=== PATIENT | female | born 1940 | race Caucasian/White ===

== ENCOUNTER 2019-08-29 10:26 | Inpatient (IN) | payer OTHER ==
[~2019-08-29] VITALS: Ht 160 cm; Wt 80.3 kg
[2019-08-29 10:42] VITALS: BP 164/54
[2019-08-29] MEDS ORDERED: OMEPRAZOLE 20 M20 M1 PO (10:46)
[2019-08-29] MEDS ORDERED: PRINIVIL20 M1 PO (10:46)
[2019-08-29] MEDS ORDERED: CELEXA 20 MG TA20 MG PO (10:47)
[2019-08-29] MEDS ORDERED: OXYBUTYNIN 5 MG5 M2 PO (10:47)
[2019-08-29] MEDS ORDERED: LIPITOR 20 MG T20 M1 PO (10:47)
[2019-08-29] MEDS ORDERED: METFORMIN HCL500 M3 PO (10:47)
[2019-08-29] MEDS ORDERED: TRAMADOL 50 MG50 MG PO (10:48)
[2019-08-29] MEDS ORDERED: XANAX 0.25 MG0.25 MG PO (10:48)
[2019-08-29] MEDS ORDERED: LEVO-T100 MCG PO (10:48)
[2019-08-29] MEDS ORDERED: METOPROLOL SUCC50 MG PO (10:48)
[2019-08-29] MEDS ORDERED: ASA81BEC PO (10:48)
[2019-08-29] MEDS ORDERED: VITAMIN C500 M2 PO (10:49)
[2019-08-29] MEDS ORDERED: ARTHRITIS PAIN650 M3 PO (10:50)
[2019-08-29] MEDS ORDERED: STOOL SOFTENER100 MG PO (10:50)
[2019-08-29] MEDS ORDERED: TUMS200 MG PO (10:50)
[2019-08-29 11:14] LABS: URINE BILIRUBIN NEGATIVE (Negative); URINE BLOOD 3+ (Negative); URINE CLARITY TURBID; URINE COLOR RED; URINE GLUCOSE-RANDOM TRACE (Negative); URINE KETONES NEGATIVE (Negative); URINE LEUKOCYTES-REFLEX TRACE (Negative); URINE NITRITE-REFLEX POSITIVE (Negative); URINE PROTEIN 3+ (Negative)
[2019-08-29 11:15] LABS: ABSOLUTE BASOPHILS 0.1 thou/uL (0.0-0.2); ABSOLUTE EOSINOPHILS 0.7 thou/uL (0.0-0.7); ABSOLUTE LYMPHOCYTES 1.7 thou/uL (0.8-5.3); ABSOLUTE MONOCYTES 0.6 thou/uL (0.0-1.2); ABSOLUTE NEUTROPHILS 6.8 thou/uL (1.6-8.1); BASOPHILS 0.9 %; EOSINOPHILS 6.9 %; HEMATOCRIT 34.7 % (37.0-47.0); HEMOGLOBIN 11.4 gm/dL (12.0-15.0); LYMPHOCYTES 17.1 %; MCH 30.5 pg (26.0-34.0); MCV 92.5 fL (80.0-100.0); MONOCYTES 6.5 %; MPV 7.8 fl. (7.2-11.1); NUCLEATED RBCS 0 /100WBC; PLATELET COUNT* 300 thou/uL (150-400); POLYS 68.6 %; RBC 3.75 mil/uL (4.20-5.00); RDW-CV 14.5 % (10.5-14.5); WBC 9.9 thou/uL (4.0-11.0)
[2019-08-29 11:21] LABS: SQUAMOUS 0-3 Few /LPF (0-3); URINE RBC >20 Many /HPF (0-2)
[2019-08-29 11:22] LABS: URINE WBC-REFLEX 6-15 Few /HPF (0-5)
[2019-08-29 11:25] LABS: BACTERIA-REFLEX None Seen /HPF (None Seen); CASTS None Seen /LPF (None Seen); MUCUS None Seen strn/LPF (None Seen)
[2019-08-29 11:26] LABS: CRYSTALS None Seen /LPF (None Seen)
[2019-08-29 11:27] LABS: APTT 30.1 Seconds (25.0-31.3); PROTIME 10.3 Seconds (9.20-11.50)
[2019-08-29 11:35] LABS: CALCIUM 8.8 mg/dL (8.5-10.1); CREATININE 1.6 mg/dL (0.6-1.3); POTASSIUM 4.7 mmol/L (3.5-5.1)
[2019-08-29 11:40] LABS: ALBUMIN 3.4 g/dL (3.4-5.0); TOTAL BILIRUBIN 0.4 mg/dL (<0.1-1.0); TOTAL PROTEIN 7.5 g/dL (6.4-8.2)
[2019-08-29 17:27] VITALS: BP 129/48
[2019-08-29 17:59] VITALS: BP 156/47
[2019-08-29] MEDS ORDERED: SLEEP AID50 MG PO (18:14)
[2019-08-29] MEDS ORDERED: B COMPLEX-FOLI1 EACH PO (18:15)
[2019-08-29] MEDS ORDERED: ESTRACE42.5 GM VAG (18:16)
[2019-08-30] VITALS: BP 124/55
[2019-08-30 06:13] LABS: ALBUMIN 3.3 g/dL (3.4-5.0); CREATININE 1.3 mg/dL (0.6-1.3); MAGNESIUM 1.8 mg/dL (1.8-2.4); POTASSIUM 4.9 mmol/L (3.5-5.1); TOTAL BILIRUBIN 0.4 mg/dL (<0.1-1.0); TOTAL PROTEIN 7.3 g/dL (6.4-8.2)
[2019-08-30 07:14] LABS: HEMATOCRIT 34.4 % (37.0-47.0); HEMOGLOBIN 11.4 gm/dL (12.0-15.0); MCH 30.8 pg (26.0-34.0); MCHC 33.2 g/dL (28.0-37.0); MCV 92.6 fL (80.0-100.0); MPV 8.4 fl. (7.2-11.1); RBC 3.71 mil/uL (4.20-5.00); RDW-CV 14.4 % (10.5-14.5); WBC 9.8 thou/uL (4.0-11.0)
[2019-08-30 08:20] VITALS: BP 140/48
[2019-08-30 15:58] VITALS: BP 126/51
[2019-08-30 19:30] VITALS: BP 140/53
[2019-08-31 04:58] LABS: CALCIUM 8.1 mg/dL (8.5-10.1); CREATININE 1.3 mg/dL (0.6-1.3); MAGNESIUM 1.7 mg/dL (1.8-2.4); POTASSIUM 4.5 mmol/L (3.5-5.1)
[2019-08-31 05:31] LABS: HEMATOCRIT 32.7 % (37.0-47.0); HEMOGLOBIN 10.8 gm/dL (12.0-15.0); MCH 30.3 pg (26.0-34.0); MCHC 33.2 g/dL (28.0-37.0); MCV 91.3 fL (80.0-100.0); MPV 8.2 fl. (7.2-11.1); RBC 3.58 mil/uL (4.20-5.00); RDW-CV 14.4 % (10.5-14.5); WBC 8.9 thou/uL (4.0-11.0)
[2019-08-31 08:00] VITALS: BP 125/44
[2019-08-31 19:40] VITALS: BP 136/50
[2019-08-31 23:32] VITALS: BP 163/45
[2019-09-01 07:55] VITALS: BP 133/49
[2019-09-01] MEDS ORDERED: CIPRO500 MG PO (10:34)
[2019-09-01 11:40] VITALS: BP 152/50
[2019-09-01 12:07] VITALS: BP 152/50
== END 2019-09-01 12:00 | disposition home or self-care (01) | DRG 690 ==
LOC: M.ERS 10:26 → M.3W 13:40 → M.TBA-ER 13:40 → M.3W 17:36
PROVIDERS: Nurse Practitioner Family; ADMIT Internal Medicine
DX: N30.01 Acute cystitis with hematuria (principal); N18.3 Chronic kidney disease, stage 3 (moderate); N32.89 Other specified disorders of bladder; F32.9 Major depressive disorder, single episode, unspecified; K21.9 Gastro-esophageal reflux disease without esophagitis; E78.5 Hyperlipidemia, unspecified; E11.22 Type 2 diabetes mellitus with diabetic chronic kidney disease; Z96.1 Presence of intraocular lens; I12.9 Hypertensive chronic kidney disease with stage 1 through stage 4 chronic kidney disease, or unspecified chronic kidney disease; N28.9 Disorder of kidney and ureter, unspecified; Z90.49 Acquired absence of other specified parts of digestive tract; Z98.41 Cataract extraction status, right eye; Z88.2 Allergy status to sulfonamides; Z79.899 Other long term (current) drug therapy; Z79.84 Long term (current) use of oral hypoglycemic drugs; Z87.891 Personal history of nicotine dependence; Z90.711 Acquired absence of uterus with remaining cervical stump